=== PATIENT | male | born 1990 | race Caucasian/White ===

== ENCOUNTER 2016-06-13 17:40 | Emergency (ER) | payer OTHER ==
[~2016-06-13] VITALS: Ht 180.3 cm; Wt 81.6 kg
[2016-06-13 17:41] VITALS: BP 117/72
--- NOTE | 2016-06-13 21:08 | Emergency Room Report ---
History of Present Illness General Chief Complaint: Altered Level of Consciousness Present Illness HPI The patient is a 26 all male brought in by ambulance for possible drug or alcohol abuse.The patient is unresponsive at this time and is unable to provide any information. The patient was said to have been knocking on peoples doors when paramedics were called. Allergies: Coded Allergies: UNABLE TO ASSESS (Unverified , 06/13/16) Patient History Reviewed Nursing Documentation: PMH: Agreed, PSxH: Agreed Nursing Documentation-PMH Past Medical History: Deferred Review of Systems All Other Systems: negative except mentioned in HPI Physical Exam Vital Signs Date Time Temp Pulse Resp B/P Pulse Ox O2 Delivery O2 Flow Rate FiO2 06/13/16 17:33 98.1 90 16 117/72 97 Room Air Sp02 EP Interpretation: reviewed, normal General Appearance: no apparent distress, GCS 15, non-toxic, lethargic Head: normocephalic, atraumatic Eyes: bilateral eye PERRL, bilateral eye normal inspection ENT: hearing grossly normal, normal pharynx, no angioedema, normal voice Neck: full range of motion, supple/symm/no masses Respiratory: chest non-tender, lungs clear, normal breath sounds, speaking full sentences Musculoskeletal: back normal, gait/station normal, normal range of motion, non- tender Neurologic: alert, oriented x3 - at time of DC, responsive, motor strength/ tone normal, sensory intact, speech normal - at time of DC Psychiatric: judgement/insight normal, memory normal, depressed affect Skin: normal color, no rash, warm/dry, well hydrated Lymphatic: no adenopathy Medical Decision Making PA Attestation Dr. Leiva is my supervising physician. Patient management was discussed with my supervising physician Diagnostic Impression: Primary Impression: Drug abuse ER Course The patient is a 26 male BIBA for possible drug use. Differential diagnoses considered but not limited to suicidal ideation, homicidal ideation, depression, alcohol abuse, drug use Physical exam: Vitals within normal limits. No apparent distress. Patient is asleep on the gurney Patient is arousable to verbal and physical stimuli The patient is given time to rest in the emergency department The patient is now alert and oriented x3 and states that he took an unknown amount of GHB. The patient states that he is feeling nauseous. Patient is given Zofran and is feeling better. Patient will be discharged and is told to stop using drugs. ER precautions are given Laboratory Tests Test 06/13/16 18:45 Serum Alcohol < 10 mg/dL Lab Results Impression Negative blood alcohol Last Vital Signs Date Time Temp Pulse Resp B/P Pulse Ox O2 Delivery O2 Flow Rate FiO2 06/13/16 17:41 98.1 81 16 117/72 97 Room Air Status: improved Disposition: HOME, SELF-CARE Condition: Improved Referrals: [facility],REFERRING (PCP) LUL WILEY Jun 13, 2016 21:08
[2016-06-13 23:42] VITALS: BP 119/74
== END 2016-06-13 22:45 | disposition home or self-care (01) ==
LOC: EDBD 17:40 → EMR 18:50
DX: F19.10 Other psychoactive substance abuse, uncomplicated (principal)
CPT/HCPCS: 36415; 80329; 99283